=== PATIENT | female | born 1960 | race Caucasian/White ===

== ENCOUNTER 2016-06-16 18:41 | Emergency (ER) ==
[2016-06-16] MEDS ORDERED: TENIVAC IM ONE (18:47)
[2016-06-16 18:55] VITALS: BP 156/86; TEMP 98.5; BMI 38.4
--- NOTE | 2016-06-16 19:18 | CT ---
EXAM: CT of the head without contrast. HISTORY: Trauma. COMPARISON: None. TECHNIQUE: Contiguous axial images at 5 mm intervals were obtained from the base of the skull to th e vertex of the calvarium. No contrast was given. FINDINGS: The CSF containing spaces are normal in size and position. There are no extraaxial fluid collections. There is no evidence of an acute intracranial hemorrhage. There are no masses or mas s effect. No areas of abnormal density are identified. Magallanes-white differentiation is normal. Th e osseous and extracranial soft tissues are normal. IMPRESSION: No acute intracranial abnormality.
--- NOTE | 2016-06-16 19:23 | ED.PDOC ---
General ED Provider: Dr. RENA CUETO-ER Chief Complaint: Facial Injury Stated Complaint: i tripped and my glasses hit my nose Time Seen by Physician: 18:45 Mode of Arrival: Walk-In Information Source: Patient Exam Limitations: No limitations Nursing and Triage Documentation Reviewed and Agree: Yes Trauma/Injury Complaint Exam - Facial Injury Complaint/Exam Location of Pain: Reports: Nose Mechanism of Injury: Reports: Trauma Onset/Duration: one hour Symptoms Are: Still present Onset of Pain: Reports: Immediate Initial Severity: Mild Current Severity: Mild Location: Reports: Discrete (face) Character: Reports: Dull, Aching Alleviating: Reports: None Aggravating: Reports: None Associated Signs and Symptoms: Reports: Bruising, Numbness Related Surgical History: Reports: None Facial Findings: Present: Swelling, Ecchymosis, Abrasion Differential Diagnoses: Abrasion, Contusion, Fracture Review of Systems - Review Of Systems Constitutional: Reports: No symptoms Eyes: Reports: No symptoms Ears, Nose, Mouth, Throat: Reports: No symptoms Respiratory: Reports: No symptoms Cardiac: Reports: No symptoms GI: Reports: No symptoms : Reports: No symptoms Musculoskeletal: Reports: No symptoms Skin: Reports: No symptoms Neurological: Reports: No symptoms Endocrine: Reports: No symptoms Hematologic/Lymphatic: Reports: No symptoms All Other Systems: Reviewed and Negative Past Medical History - Past Medical History Endocrine: Reports: Unknown Cardiovascular: Reports: Unknown Respiratory: Reports: Unknown Hematological: Reports: Unknown Gastrointestinal: Reports: Unknown Genitourinary: Reports: Unknown Neuro/Psych: Reports: Unknown Musculoskeletal: Reports: Unknown Cancer: Reports: Unknown Last Menstrual Period: menopause - Surgical History General Surgical History: Reports: Unknown - Family History Family History: Reports: Unknown - Social History Smoking Status: Current every day smoker, Light tobacco smoker Hx Substance Use: No Alcohol Screening: None Lives: With family - Immunizations Tetanus Shot up to Date: No Physical Exam - Physical Exam Appearance: Well-appearing, No pain distress, Well-nourished Pain Distress: Mild Eyes: STEPHANIE, EOMI, Conjunctiva clear ENT: Ears normal, Nose normal, Oropharynx normal Neck: Supple Respiratory: Airway patent Cardiovascular: RRR GI/: Soft, Nontender, No masses, Bowel sounds normal, No Organomegaly Musculoskeletal: Normal strength, ROM intact, No edema, No calf tenderness Skin: Warm Neurological: Sensation intact, Motor intact, Reflexes intact, Cranial nerves intact, Alert, Oriented Psychiatric: Affect appropriate Interpretation - Radiology Interpretation Radiology Interpretation By: Radiologist Radiology Results: Positive Exam Interpreted: CT Scan Critical Care Note - Critical Care Note Total Time (mins): 0 Course - Course Orders, Labs, Meds: Orders Category Date Time Status Wound care [ED WOUND CARE] .ONCE EMERGENCY 06/16/16 19:27 Active Clindamycin HCl [Cleocin] MEDS 06/16/16 19:27 Stat 150 mg PO ONCE STA Hydrocodone Bit/Acetaminophen [[place] 5-325] MEDS 06/16/16 19:27 Stat 1 tab PO ONCE STA Mupirocin [Bactroban] MEDS 06/16/16 19:27 Stat 1 applic TP ONCE STA Tetanus and Diphtheria Tox/Pf [Tenivac] MEDS 06/16/16 18:47 Discontinued 0.5 ml IM .ONCE ONE CT CERVICAL SPINE W/O CONTRAST Stat RADS 06/16/16 18:[address] HEAD W/O CONTRAST Stat RADS 06/16/16 18:[address] MAXILLOFACIAL W/O CONTRAST Stat RADS 06/16/16 18:46 Completed Medications Generic Name Dose Route Start Last Admin Trade Name Freq PRN Reason Stop Dose Admin Acetaminophen/Hydrocodone Bitart 1 tab 06/16/16 19:27 [place] 5-325 PO 06/16/16 19:28 ONCE STA Clindamycin HCl 150 mg 06/16/16 19:27 Cleocin PO 06/16/16 19:28 ONCE STA Mupirocin 1 applic 06/16/16 19:27 Bactroban TP 06/16/16 19:28 ONCE STA Discontinued Medications Generic Name Dose Route Start Last Admin Trade Name Freq PRN Reason Stop Dose Admin Tetanus/Diphtheria Toxoids Adsorbed 0.5 ml 06/16/16 18:47 06/16/16 19:24 Tenivac IM 06/16/16 18:48 0.5 ml .ONCE ONE Administration Vital Signs: Temp Pulse Resp BP Pulse Ox 06/16/16 18:41 98.5 F 83 20 156/86 H 95 Departure - Departure Time of Disposition: 19:28 Disposition: HOME SELF-CARE Discharge Problem: Nasal bone fracture Qualifiers: Encounter type: initial encounter Fracture type: open Qualifier Code: (S02.2XXB ) Fracture of nasal bones, initial encounter for open fracture Instructions: Nasal Fracture (ED) Condition: Good Pt referred to PMD for follow-up: Yes Additional Instructions: keep clean and dry...clindamycin 150mg tid x 7days--norco 5mg q 4hrs prn pain # 20--have rafael in am refer to ent for further tx Allergies/Adverse Reactions: Allergies Penicillins Adverse Reaction (Verified 06/16/16 18:48) Home Medications: Ambulatory Orders Citalopram Hydrobromide [Celexa] 40 mg PO DAILY 06/16/16 Hydrochlorothiazide 25 mg PO DAILY 06/16/16 Meloxicam 15 mg PO DAILY 06/16/16 Disposition Discussed With: Patient
--- NOTE | 2016-06-16 19:23 | CT ---
EXAM: CT of the facial bone. HISTORY: Trauma. COMPARISON: None. TECHNIQUE: Contiguous axial images were obtained through the facial bones. Sagittal and coronal re formats were reviewed. No contrast. FINDINGS: There are no displaced fractures. There are no lytic or blastic lesions. There is a nond isplaced fracture of the right nasal ala. The nasal septum is deviated to the left. The orbits and orbital contents are intact. The sinuses are clear. There are no air-fluid levels to suggest occul t fracture. There is mucosal thickening in the right sphenoid sinus. The mastoid air cells are wel l-aerated. The zygomatic arches, pterygoid plates and mandibles are all intact. IMPRESSION: 1. Nondisplaced fracture of the right nasal ala. No other fractures are identified. 2. Deviated nasal septum.
[2016-06-16] MEDS ORDERED: CLEOCIN PO STA (19:27)
[2016-06-16] MEDS ORDERED: BACTROBAN TP STA (19:27)
[2016-06-16] MEDS ORDERED: NORCO 5-325 PO STA (19:27)
--- NOTE | 2016-06-16 19:28 | CT ---
EXAM: CT cervical spine. HISTORY: Trauma. COMPARISON: None. TECHNIQUE: Contiguous axial images at 2 mm intervals were obtained from the base of the skull to th e thoracic spine. Sagittal and coronal reformats were reviewed. No contrast was given. FINDINGS: There is normal curvature and alignment. Vertebral heights are well maintained. There ar e no acute or healing fractures. There are no lytic or blastic lesions. Disc narrowing and osteoph yte formation is seen at multiple levels. No disc bulges are identified. The soft tissues are norm al. The airway is widely patent. Limited views of the lung apices are normal. C 2-3: No spinal canal or neural foramen narrowing. C 3-4: No spinal canal or neural foraminal narrowing. C 4-5: Disc narrowing and osteophyte formation is seen. There is mild left neural foramen narrowing . C 5-6: Disc narrowing. Posterior osteophytes is seen. No definite spinal canal or neural foramen n arrowing is seen. C 6-7: Normal. IMPRESSION: 1. No acute fractures. 2. Mild degenerative disc disease, most pronounced at C4-5.
== END 2016-06-16 19:58 | disposition home or self-care (01) ==
LOC: ED 18:41
DX: S02.2XXB Fracture of nasal bones, initial encounter for open fracture (principal); W01.0XXA Fall on same level from slipping, tripping and stumbling without subsequent striking against object, initial encounter; F17.210 Nicotine dependence, cigarettes, uncomplicated
CPT/HCPCS: 90471; 99283